=== PATIENT | male | born 1995 ===

== ENCOUNTER 2018-08-16 10:43 | Emergency (ER) | payer OTHER ==
[2018-08-16] MEDS ORDERED: Ondansetron ODT 4 MG TAB ONE (11:03)
--- NOTE | 2018-08-16 11:59 | CT ---
CT Brain WO Con History: Frontal headache Comparison: None. Findings: No acute hemorrhage or infarct. No midline shift or mass effect. Ventricular size and extra -axial CSF spaces are normal. The calvarium is intact. Paranasal sinuses and mastoids are clear. Impression: No acute intracranial abnormality.
[2018-08-16] MEDS ORDERED: Ketorolac Tromethamine 60 MG/2 ML VIAL ONE (12:19)
[2018-08-16] MEDS ORDERED: Metoclopramide HCl 10 MG/2 ML VIAL ONE (12:19)
[2018-08-16] MEDS ORDERED: diphenhydrAMINE 50 MG/ML VIAL ONE (12:19)
[2018-08-16 12:37] LABS: #Eosinphils 0.1 thou/uL (0.0-0.7); #Lymphocytes 1.2 thou/uL (1.20-3.40); #Monocytes 0.4 thou/uL (0.11-0.59); %Basophils 0.5 % (0.0-1.0); %Eosinophils 1.5 % (0.0-10.0); %Lymphocytes 20.5 % (21.0-51.0); %Monocytes 7.3 % (0.0-10.0); %Neutrophils 70.2 % (42.0-75.0); Hemoglobin 15.3 g/dL (14.0-18.0); Mean Corpuscular HGB CONC 33.5 g/dL (32.0-36.0); Mean Corpuscular Hemoglobin 29.6 pg (27.0-31.0); Mean Corpuscular Volume 88.4 fL (78.0-98.0); Mean Platelet Volume 6.3 fL (7.4-10.4); Platelet Count 278 thou/uL (130-400); RBC Distribution Width 11.4 % (11.5-14.5); Red Blood Cell (RBC) Count 5.17 mill/uL (4.70-6.10); White Blood Cell (WBC) Count 5.7 thou/uL (4.8-10.8)
[2018-08-16 12:57] LABS: Anion Gap 13 mmol/L (10-20); BUN (Urea Nitrogen) 11 mg/dL (8.9-20.6); Calc. Creatinine Clearance 0 mL/min (70-130); Calcium 10.2 mg/dL (7.8-10.44); Carbon Dioxide 26 mmol/L (22-29); Chloride 102 mmol/L (98-107); Estimated GFR-MDRD Greater than 90; Glucose 100 mg/dL (70-105); Potassium 4.2 mmol/L (3.5-5.1); Sodium 137 mmol/L (136-145)
[2018-08-16 14:04] LABS: Bilirubin Negative (Negative); Blood, Urine Negative (Negative); Glucose, Urine (Dipstick) Negative (Negative); Leukocyte Negative (Negative); Nitrite Negative (Negative); Protein, Urine (Dipstick) Negative (Neg-Trace); Urobilinogen 0.2 mg/dL (Less than 2)
[2018-08-16 14:05] LABS: Clarity Clear (Clear)
[2018-08-16] MEDS ORDERED: Ketamine 50 MG/ML (10ML VIAL) ONE (14:14)
[2018-08-16 14:29] LABS: Medtox Reader # READER 1
[2018-08-16 14:30] LABS: Amphetamine Not Detected (NotDetected); Barbiturates Screen Not Detected (NotDetected); Benzodiazepine Screen Not Detected (NotDetected); Cocaine Metabolite Screen Not Detected (NotDetected); Medtox Control Line Valid? VALID (VALID); Methadone Not Detected (NotDetected); Methamphetamine Not Detected (NotDetected); Opiate Screen Not Detected (NotDetected); Oxycodone Screen Not Detected (NotDetected); Phencyclidine (PCP) Not Detected (NotDetected); THC/Cannabinoid Screen Detected (NotDetected); Tricyclic Screen Not Detected (NotDetected)
[2018-08-16] MEDS ORDERED: Lidocaine 1% (PF) 30 ML VIAL ONE (15:02)
[2018-08-16 16:03] LABS: Unspun CSF Color COLORLESS (Colorless)
[2018-08-16] MEDS ORDERED: Magnesium 2 GM/50 ML BAG (IN WATER) ONE (16:09)
[2018-08-16] MEDS ORDERED: methylPREDNISolone Sod Succ/PF 125 MG/2 ML VIAL ONE (16:09)
[2018-08-16 16:10] LABS: Color Of CSF Supernatant COLORLESS (Colorless)
[2018-08-16 16:23] LABS: CSF, Glucose 56 mg/dl (40-70); CSF, Protein 41 mg/dL (15-40)
[2018-08-16 16:24] LABS: CSF Source CSF; Clarity Clear (Clear); RBC Count - Manual 8 /cumm (None Seen); Tube # 1; Tube # 4; WBC/NonHematics Count - Manual 14 /cumm (0-5)
[2018-08-16 16:30] LABS: RBC Count - Manual 156 /cumm (None Seen); WBC/NonHematics Count - Manual 12 /cumm (0-5)
[2018-08-16 16:51] LABS: Cell Count Non Hematic 5 %; Eosinophils 2 %; Lymphocytes 89 %
[2018-08-16 16:52] LABS: Cell Count Non Hematic 10 %; Lymphocytes 85 %
[2018-08-16 16:55] LABS: Tube # 2
== END 2018-08-16 17:49 | disposition home or self-care (01) ==
LOC: ERS 10:43
DX: A87.9 Viral meningitis, unspecified (principal)
CPT/HCPCS: 62270; 70450; 80048; 80306; 81003; 82945; 84157; 85025; 85060; 89051; 96365; 96367; 96375; J1200; J1885; J2001; J2765; J2930; J3475; Q0162